=== PATIENT | male | born 1940 | race Caucasian/White ===

== ENCOUNTER → 2016-03-30 | Outpatient (REF) | payer MEDICARE ==
[~2016-03-30] MED LIST: ALBU17IN INH; ALFU10TA2 PO; AMIO20TA PO; ASPI1TAB24 PO; ATOR1TAB21 PO; AUGM875T27 PO; COUM2TAB10 PO; FERR325T3 PO; FOLI1TAB2 PO; LASI20TA PO; MOM30SS PO; PRED20TA PO; SPIR1CAP INH; SYMB80INH INH; TYLE325T5 PO
== END ==
LOC: M SMT 17:32
PROVIDERS: ATTEND Nurse Practitioner Women's Health
DX: N40.0 Benign prostatic hyperplasia without lower urinary tract symptoms (principal)

== ENCOUNTER 2016-07-11 18:02 | Inpatient (IN) | payer MEDICARE ==
[~2016-07-11] VITALS: Ht 177.8 cm; Wt 90.3 kg
[2016-07-11] MEDS ORDERED: VANCOMYCIN HCL 1,000 MG, VIAL MATE ADAPTER 1 EACH in D5W 250 ML IV ONE (18:30)
[2016-07-11] MEDS ORDERED: ACETAMINOPHEN 325 MG TAB PO ONE (18:30)
[2016-07-11] MEDS ORDERED: NS 1,000 ML IV ONE (18:30)
[2016-07-11] MEDS ORDERED: CLINDAMYCIN 600 MG in APPROPRIATE DILUENT 1 EA IV ONE (18:30)
[2016-07-11 18:38] LABS: BASO % 0.3 % (0.0-1.0); EOS # 0.1 K/mm3 (0.0-0.50); EOS % 0.7 % (0.0-3.0); LARGE UNSTAINED CELL # 0.1 K/mm3 (0.0-0.4); LARGE UNSTAINED CELL % 0.9 % (0.0-4.0); LYMPH # 0.8 K/mm3 (1.5-4.5); LYMPH % 7.9 % (24.0-44.0); MEAN CORPUSCULAR HEMOGLOBIN 27.2 pg (27.0-33.0); MEAN CORPUSCULAR HGB CONC 30.9 g/dl (32.0-36.5); MEAN CORPUSCULAR VOLUME 88.2 fl (80.0-96.0); MONO # 0.6 K/mm3 (0.0-0.8); MONO % 6.1 % (0.0-5.0); NEUTROPHILS # 7.6 K/mm3 (1.8-7.7); NEUTROPHILS % 84.1 % (36.0-66.0); PLATELET COUNT, AUTOMATED 179 k/mm3 (150-450); RED CELL DISTRIBUTION WIDTH 14.2 % (11.5-14.5)
[2016-07-11 18:43] LABS: INR 1.73
--- NOTE | 2016-07-11 18:50 | REPUSA ---
CT of the head Clinical history: head injury. Protocol: Multiple axial CT images obtained with 5 mm slice thickness were obtained through the head without administration of contrast. Findings: The ventricles and sulci are symmetric but prominent in size bilaterally. There are periven tricular areas of low attenuation throughout the deep white matter. There is no evidence of acute hem orrhage or infarct. There is no midline shift, mass effect, or extra-axial fluid collection. The osse ous structures are unremarkable. The visualized paranasal sinuses and mastoid air cells are clear. Impression: No acute hemorrhage or infarct. Findings are consistent with age-related atrophy and legal instruments examiner palma small vessel ischemic disease.
--- NOTE | 2016-07-11 18:50 | REPUSA ---
CT of the cervical spine Clinical history: Pain. Technique: Multiple axial CT images were obtained through the cervical spine without administration o f contrast. Coronal and sagittal 3-D reconstructed images were also obtained. Comparison: None. Findings: The cervical vertebral bodies are in satisfactory alignment, but there is reversal of curvature of t he cervical spine noted. No fractures or dislocations are demonstrated. The odontoid process is intac t. Intervertebral disc spaces are severely narrowed at C3/C4, C4/C5, and C5/C6 with disc osteophyte c omplexes. Moderate central canal narrowing is seen at each of these levels, measuring 7 mm in AP diam eter at C3/C4 and C4/C5. There is no evidence of facet subluxation. There is severe narrowing of the left neural foramen at C3/C4. There is severe narrowing of the right neural foramen at C4/C5. The cer vical cranial junction is intact. The surrounding soft tissues are within normal limits. Impression: 1. No acute fracture or traumatic injury. Severe spondylosis as described. 2. Severe degenerative disc disease with disc osteophyte complexes at C3/C4, C4/C5, and C5/C6. 3. Moderate central canal narrowing at C3/C4 with severe left neural foraminal narrowing. 4.. Moderate central canal narrowing at C4/C5 with severe right neural foraminal narrowing.
[2016-07-11 19:08] LABS: ALBUMIN 3.6 GM/DL (3.2-5.2); ALKALINE PHOSPHATASE 63 U/L (45-117); ALT/SGPT 21 U/L (12-78); AST/SGOT 28 U/L (15-37); BILIRUBIN,DIRECT 0.2 MG/DL (0.0-0.2); BILIRUBIN,TOTAL 0.6 MG/DL (0.2-1.0); BLOOD UREA NITROGEN 21 MG/DL (7-18); CALCIUM LEVEL 9.2 MG/DL (8.8-10.2); CHLORIDE LEVEL 103 MEQ/L (98-107); CREATININE FOR GFR 1.16 MG/DL (0.70-1.30); GLUCOSE, FASTING 106 MG/DL (83-110); POTASSIUM SERUM 4.2 MEQ/L (3.5-5.1); SODIUM LEVEL 142 MEQ/L (136-145); TOTAL PROTEIN 6.9 GM/DL (6.4-8.2)
--- NOTE | 2016-07-11 20:10 | REPUSA ---
Clinical history: redness. Findings: Real-time ultrasound imaging of the testicles and scrotum was performed. The right testicle measures 5.0 x 1.8 x 2.9 cm. The left testicle measures 4.8 x 2.3 x 3.2 cm. There is a cyst in th e head of the left epididymis measuring 0.3 x 0.2 cm. The testicles demonstrate normal echo texture a nd echogenicity. Normal color Doppler flow and arterial waveforms are seen bilaterally. No fluid kt ections are seen. Impression: Unremarkable ultrasound examination of the testicles.
[2016-07-11 20:24] LABS: ANION GAP 9 MEQ/L (8-16); CARBON DIOXIDE LEVEL 30 MEQ/L (21-32)
[2016-07-11] MEDS ORDERED: IBUPROFEN 600 MG TAB PO ONE (20:30)
[2016-07-11 20:54] LABS: ALBUMIN/GLOBULIN RATIO 1.09 (1.00-1.93)
[2016-07-11] MEDS ORDERED: SYMB16INH INH (21:12)
[2016-07-11] MEDS ORDERED: ASPI81TA13 PO (21:15)
[2016-07-11] MEDS ORDERED: WARF-20 PO (21:15)
[2016-07-11] MEDS ORDERED: LEFL1TAB4 PO (21:21)
[2016-07-11] MEDS ORDERED: OXYB10TA PO (21:21)
[2016-07-11] MEDS ORDERED: WARF-60 PO (21:21)
[2016-07-11] MEDS ORDERED: FERR325T PO (21:21)
[2016-07-11] MEDS ORDERED: SERT-138 PO (21:21)
[2016-07-11] MEDS ORDERED: VITA200015 PO (21:21)
[2016-07-11] MEDS ORDERED: METF500T PO (21:21)
[2016-07-11] MEDS ORDERED: GLUCAGON FOR INJ 1 MG VIAL (J1610) SC PRN (21:30)
[2016-07-11] MEDS ORDERED: DEXTROSE 50% 50 ML SYRINGE IV PRN (21:30)
[2016-07-11] MEDS ORDERED: IPRATROPIUM 0.5MG/ALBUTEROL 2.5MG INH SOL UD 3ML (DUONEB)(J7620) NEB PRN (21:30)
[2016-07-11] MEDS ORDERED: GLUCOSE 4 GM CHEW TABLET PO PRN (21:30)
--- NOTE | 2016-07-11 21:50 | REPUSA ---
CT of the facial bones without contrast Clinical history: left ear cellulitis. Technique: Multiple axial CT images were obtained through the facial bones and paranasal sinuses util izing 3 mm axial slices without administration of contrast. Coronal and sagittal reconstructions were also obtained. Findings: The visualized paranasal sinuses are clear. The osteomeatal complexes are patent bilaterall y. The nasal septum is midline. The visualized mastoid air cells are clear. The osseous structures do not demonstrate any acute abnormalities. The superficial soft tissues in the left auricle are swolle n, with tissue density t the site. Impression: 1.. Focal soft tissue inflammation and increased density in the left auricular region, corresponding with the patient's suspicious cellulitis of the left external ear. 2. No acute osseous abnormality.
[2016-07-11] MEDS: LR 1,000 ML IV SCH (22:44)
[2016-07-11] MEDS: CEFTAROLINE FOSAMIL 600 MG in D5W MINI-BAG PLUS 50 ML IV SCH (22:46)
[2016-07-11] MEDS: SYMBICORT 160/4.5MCG INHALER 6GM INH SCH (22:49)
[2016-07-11] MEDS: WARFARIN SOD 3 MG TAB PO SCH (22:50)
[2016-07-11] MEDS: SERTRALINE 100 MG TAB PO SCH (22:52)
[2016-07-11] MEDS: ATORVASTATIN 20 MG TAB PO SCH (22:52)
[2016-07-11] MEDS: SENOKOT S TAB PO SCH (22:53)
[2016-07-12] VITALS (8 sets, daily range): BP systolic 131–187; BP diastolic 59–88
[2016-07-12] MEDS: HEPARIN SOD (PORCINE) 5000 UNITS/ML VIAL SQ SCH ×3 (01:03→21:02)
[2016-07-12] MEDS: IPRATROPIUM 0.5MG/ALBUTEROL 2.5MG INH SOL UD 3ML (DUONEB)(J7620) NEB SCH ×4 (01:38→20:00)
--- NOTE | 2016-07-12 01:53 | HPE ---
DATE OF ADMISSION: 07/11/2016 PRIMARY CARE PROVIDER: Yaron Riggs. CHIEF COMPLAINT: Fever and altered mental status. HISTORY OF PRESENT ILLNESS: This is a 76-year-old male patient with underlying medical history of chronic obstructive pulmonary disease (COPD), not on oxygen, obstructive sleep apnea on continuous positive airway pressure (CPAP) at home, dyslipidemia, hypertension, coronary arterial disease with coronary artery bypass graft (CABG), BPH. As per family, patient earlier today was noted to be mildly confused, was also febrile, was very weak. Baseline ambulating with a walker with also benign paroxysmal positional vertigo, undergoing physical therapy. The patient earlier today was so weak that he gave out three times and fell on the floor. No loss of consciousness. No head trauma. Family noticed that the patient is confused intermittently about his name and where he is. Baseline is alert and oriented times three. Was found to be febrile, 103. Subsequently, brought to the emergency room. Patient's only complaint was a mild headache. In the emergency room, patient was found to have a fever of 103. Given intravenous (IV) fluids and antibiotics, found to have cellulitis of left ear with swelling. When the fever improved, patient's mental status also improved. Currently, is alert, oriented times three, only minimally confused. Denies any chest pain, pressure or discomfort. Reported mild headache. No vision change, hearing change. No palpitations, abdominal pain, diarrhea, constipation. No purulent drainage. Patient does have history of a left-sided ear infection in the past with periauricular cellulitis. Last time was 10 months ago. ALLERGIES: No known drug allergies. PAST MEDICAL HISTORY: 1. COPD. 2. Obstructive sleep apnea on CPAP. 3. Hypertension. 4. Dyslipidemia. 5. Coronary arterial disease. 6. Questionable history of diabetes. 7. BPH. PAST SURGICAL HISTORY: 1. Tonsillectomy. 2. Cataract surgery. 3. Cardiac bypass. SOCIAL HISTORY: Remote history of smoking pipe. Quit 2012. Does not drink alcohol. Does not use illicit drugs. FAMILY HISTORY: Positive for coronary arterial disease and myocardial infarction (NM). REVIEW OF SYSTEMS: 10-point review of systems negative except for those mentioned in the history of present illness (HPI). HOME MEDICATIONS: - aspirin 81 mg by mouth daily - atorvastatin 20 mg by mouth every evening - Symbicort 160/4.5 mcg inhalation twice a day - vitamin D 4000 units by mouth daily - ferrous sulfate 325 mg by mouth daily - leflunomide 20 mg by mouth daily - metformin 500 mg by mouth twice a day - oxybutynin 10 mg by mouth daily - sertraline 100 mg every evening - Spiriva inhalation daily - Coumadin 4 mg by mouth Tuesday, Tuesday, Tuesday and 6 mg by mouth Tuesday, Tuesday, , Tuesday PHYSICAL EXAMINATION: VITAL SIGNS: Maximum temperature (T-max) 102.5, current temperature (T-current) 101.5, pulse 72, respirations 20, blood pressure 149/70, pulse oximetry 93% on room air. GENERAL: Patient alert and oriented times three in no acute distress. HEENT: Left periauricular swelling. Tympanic membrane (TM) bilateral ear was filled with wax. No tenderness to tucking of the ears. PULMONARY: Bilaterally clear to auscultation. CARDIAC: Regular rate and rhythm. Normal S1, S2. ABDOMEN: Soft, nontender, nondistended. Positive bowel sounds. EXTREMITIES: No edema bilateral lower extremities. EKGs are pending. LABORATORY: WBC 9, hemoglobin and hematocrit 12.4/40.2, platelets 179. Chemistry: Sodium 142, potassium 4.2, chloride 103, bicarbonate 30, BUN 21, creatinine 1.16. A1c 5.6. Cardiac enzymes negative times one. C-reactive protein 1.53. Total CK 1107. CT of the head no acute pathology. Ultrasound scrotum negative. CT maxillofacial shows focal soft tissue swelling, increased density of the left auricular region, possibly suspicious for cellulitis. ASSESSMENT AND PLAN: This is a 76-year-old male patient with underlying medical history of chronic obstructive pulmonary disease (COPD), obstructive sleep apnea on continuous positive airway pressure (CPAP), hypertension, dyslipidemia, coronary arterial disease, questionable diabetes, BPH, admitted with fevers and cellulitis of the left auricular region and possible otitis externa. 1. Fevers and cellulitis of the periauricular region on the left side and possible otitis externa. This is the second episode. Otolaryngology (ENT), Dr. Alexandro Fuentes has been consulted. Teflaro. Intravenous (IV) fluids for hydration gently overnight. One dose of vancomycin has been given in the emergency room. Continue to monitor. Tylenol as needed. Followup blood cultures. Influenza has been negative. 2. Rhabdomyolysis. Mild, likely secondary to the fall. Patient fell three times today. Physical therapy (PT). IV fluids for gentle hydration. Repeat creatinine phosphokinase (CPK). Telemetry monitoring. 3. Coronary arterial disease. EKG, telemetry. Continue aspirin, statin. Serial cardiac enzymes. 4. History of paroxysmal atrial fibrillation. Patient currently in sinus rhythm. Continue Coumadin. Telemetry monitoring. Patient was previously on amiodarone. Currently not on any rate control medication. Will continue to monitor. 5. COPD. Patient not having any wheeze. Continue nebulizer treatment as needed, Symbicort and Spiriva. 6. BPH. Continue home medication. 7. Hypertension. Monitor blood pressure. Additional blood pressure medication as needed. 8. Encephalopathy. Secondary to fevers and underlying infection. CT scan negative. Continue to monitor. 9. Dyslipidemia. Continue statin. 10. Obstructive sleep apnea. Obstructive sleep apnea (NICKI) protocol. Continue CPAP. 11. Depression. Continue home medication. 12. Questionable history of diabetes. A1c has been negative. Followup fingersticks. Would not give the patient any coverage. 13. Deep venous thrombosis (DVT) prophylaxis. Patient on Coumadin for atrial fibrillation. Followup international normalized ratio (INR). DISPOSITION: Pending ENT consult, clinical improvement, physical therapy.
[2016-07-12] MEDS ORDERED: HumaLOG INSULIN (NovoLOG) PER UNIT SC SCH ×2 (07:30→21:00)
[2016-07-12 08:09] LABS: MEAN CORPUSCULAR HEMOGLOBIN 27.5 pg (27.0-33.0); MEAN CORPUSCULAR HGB CONC 30.6 g/dl (32.0-36.5); MEAN CORPUSCULAR VOLUME 89.9 fl (80.0-96.0); RED CELL DISTRIBUTION WIDTH 14.6 % (11.5-14.5); WHITE BLOOD COUNT 6.6 K/mm3 (4.0-10.0)
[2016-07-12 08:15] LABS: INR 1.57
--- NOTE | 2016-07-12 08:19 | REP ---
Portable chest: Single view. History: Systemic inflammatory response syndrome. Comparison study: March 31, 2015 Findings: The lungs are symmetrically aerated and clear. No infiltrate is seen. EKG monitoring electrodes overlie the chest. Pulmonary vasculature is not increased. Heart is not enlarged. Median sternotomy wires are again seen. Impression: No acute disease. Signed by Rodger Veloz MD 07/12/2016 08:11 A
[2016-07-12] MEDS: SYMBICORT 160/4.5MCG INHALER 6GM INH SCH ×2 (08:42→21:21)
[2016-07-12] MEDS: TIOTROPIUM INHALER/CAPSULE (SPIRIVA) INH SCH (08:42)
[2016-07-12 09:18] LABS: ANION GAP 5 MEQ/L (8-16); BLOOD UREA NITROGEN 19 MG/DL (7-18); CALCIUM LEVEL 8.9 MG/DL (8.8-10.2); CARBON DIOXIDE LEVEL 27 MEQ/L (21-32); CHLORIDE LEVEL 109 MEQ/L (98-107); CREATININE FOR GFR 1.04 MG/DL (0.70-1.30); GLOMERULAR FILTRATION RATE > 60.0 (>42); GLUCOSE, FASTING 127 MG/DL (83-110); POTASSIUM SERUM 3.6 MEQ/L (3.5-5.1); SODIUM LEVEL 141 MEQ/L (136-145)
[2016-07-12] MEDS: LR 1,000 ML IV SCH ×3 (09:27→21:03)
[2016-07-12] MEDS: VITAMIN D 1,000 INTERNATIONAL UNITS TABLET PO SCH (09:28)
[2016-07-12] MEDS: ASPIRIN 81 MG ENTERIC TAB PO SCH (09:28)
[2016-07-12] MEDS: oxyBUTYnin *DITROPAN XL* 5 MG TABCR PO SCH (09:28)
[2016-07-12] MEDS: FERROUS SULFATE 325MG TAB PO SCH (09:28)
[2016-07-12] MEDS: LACTOBACILLUS ACIDOPHILUS CAP (BACID) PO SCH ×3 (09:28→17:41)
[2016-07-12] MEDS: SENOKOT S TAB PO SCH ×2 (09:30→21:03)
[2016-07-12] MEDS: CEFTAROLINE FOSAMIL 600 MG in D5W MINI-BAG PLUS 50 ML IV SCH ×2 (11:10→22:41)
[2016-07-12] MEDS: CIPRODEX OTIC SUSP 7.5ML AS SCH ×2 (11:10→21:02)
[2016-07-12] MEDS: WARFARIN SOD 4 MG TAB PO SCH (17:42)
--- NOTE | 2016-07-12 18:55 | IPNPDOC ---
Date Seen The patient was seen on 07/12/16. Progress Note Hospitalist Progress Note Subjective: Patient states that he is feeling better, and the nursing staff notes that his ear has improved Objective: Physical Exam: Vitals: Vital Sign - Last 24 Hours 07/11/16 07/11/16 07/11/16 07/11/16 19:02 19:32 19:45 20:02 Temp 99.6 Pulse 80 70 72 B/P 149/70 Pulse Ox 93 93 93 07/11/16 07/12/16 07/12/16 07/12/16 20:02 00:00 01:15 04:00 Temp 101.5 100.1 99.6 98.3 Pulse 60 58 Resp 18 18 B/P 131/59 137/63 Pulse Ox 96 95 O2 Delivery Room Air Room Air 07/12/16 07/12/16 07/12/16 07/12/16 08:00 11:45 16:00 17:15 Temp 99.0 98.8 99.2 99.4 Pulse 63 60 64 67 Resp 18 18 18 18 B/P 149/70 135/65 157/71 162/82 Pulse Ox 95 96 95 95 O2 Delivery Room Air Room Air Room Air Room Air General: Awake, alert, no acute distress HEENT: Extraocular movements intact, left ear is unremarkable, right ear is very erythematous and swollen, extending into the surrounding tissue CV: Regular rate and rhythm, no murmurs rubs or gallops Lungs: Clear to auscultation bilaterally Abd: Soft, nontender, nondistended Extremities: No edema of the bilateral lower extremities Neuro: Alert and oriented 3, normal speech Psych: Normal mood and affect Labs and Imaging: Laboratory Tests 07/12/16 07:52 Calcium Level 8.9, Red Blood Count 4.22 L, Mean Corpuscular Volume 89.9, Mean Corpuscular Hemoglobin 27.5, Mean Corpuscular Hemoglobin Concent 30.6 L, Red Cell Distribution Width 14.6 H Assessment and Plan: 76-year-old male with COPD, NICKI on CPAP, hypertension, paroxysmal A. fib, CAD with history of CABG, hyperlipidemia, BPH, who presented with fever and changes in his mental status. He has been found to have sepsis secondary to a cellulitis of his left external ear, which the family reports is the second time this has occurred. He also appears to have some rhabdomyolysis. 1. Sepsis secondary to cellulitis of left external ear: Patient was febrile last night up to 102.5, but his white count is within normal limits. The patient 's mental status has improved and he seems to be at baseline at this point. Continue Teflaro and Ciprodex drops. Dr. Vazquez with ENT has agreed to see the patient in consultation, and we appreciate his input. Continue IV fluids. The patient reports taking leflunomide at home. Is unclear to me why he takes this, but given that it is an immunosuppressant, and he does have a significant infection, we will hold it at this time. Blood cultures are pending 2. COPD: This appears to be at baseline. Continue home Symbicort, Spiriva, and DuoNeb's. 3. NICKI on CPAP: The patient's family is bringing his home CPAP machine. 4. Hypertension: Continue home SERENITY inhibitor. 5. Paroxysmal A. fib: The patient is currently rate controlled. We will continue his home Coumadin and check daily INRs. He does not report taking any rate suppressing medications at home. 6. CAD with history of CABG, hyperlipidemia: Patient currently does not have any chest pain and his EKG is unremarkable, but he does have a mild bump in troponin to 0.14. We'll continue to monitor this. We will continue the patient on his home aspirin and statin. He does not report taking a beta juan antonio at home. 7. BPH: Continue home Ditropan. 8. Rhabdomyolysis: This is most likely secondary to the patient's fall. Family reports that he fell multiple times today. They state that he is frequently unsteady on his feet, and has a walker that he sometimes uses at home. We will continue IV fluids for hydration, as well as check his daily CKs, and get physical therapy involved. DVT prophylaxis: Heparin until INR is therapeutic. Dispo: pending ENT recommendations VS, I&O, 24H, Fishbone Vital Signs/I&O Vital Signs Date Time Temp Pulse Resp B/P Pulse Ox O2 Delivery O2 Flow Rate FiO2 07/12/16 17:15 99.4 67 18 162/82 95 Room Air I&O- Last 24 Hours up to 6 AM 07/12/16 06:00 Intake Total 1000 ml Output Total 300 ml Balance 700 ml Laboratory Data 24H LABS Laboratory Tests 2 07/11/16 18:58: Urine Amorphous Sediment , Urine Appearance CLEAR, Urine Color YELLOW, Urine pH 7.0, Urine Specific Rector 1.019, Urine Protein NEGATIVE, Urine Glucose (UA) NEGATIVE, Urine Ketones NEGATIVE, Urine Urobilinogen 0.2, Urine Bilirubin NEGATIVE, Urine Leukocyte Esterase NEGATIVE, Urine Bacteria (Auto) NEGATIVE, Urine Blood NEGATIVE, Urine Calcium Carbonate Cryst(Auto) , Urine Calcium Oxalate Cryst (Auto) , Urine Calcium Phosphate Norma (Auto) , Urine Cellular Casts , Urine Cystine Crystals , Urine Granular Casts (Auto) , Urine Hyaline Casts (Auto) 0, Urine Leucine Crystals , Urine Mucus (Auto) , Urine Nitrite NEGATIVE, Urine Oval Fat Bodies (Auto) , Urine RBC (Auto) 0, Urine Renal Epithelial Cells , Urine Sperm (Auto) , Urine Squamous Epithelial Cells 0, Urine Transitional Epithelial Cells , Urine Trichomonas (Auto) , Urine Triple Phosphate Cryst (Auto) , Urine Tyrosine Crystals , Urine Uric Acid Crystals ( Auto) , Urine WBC (Auto) 1, Urine Waxy Casts (Auto) , Urine Yeast-Like Cells ( Auto) 07/11/16 23:04: Creatine Kinase MB 5.9H, Creatine Kinase MB Relative Index 0.12, Total Creatine Kinase 4840#H, Troponin I 0.14#H 07/12/16 06:47: Bedside Glucose (Misc Panel) 94 07/12/16 07:52: Creatine Kinase MB 10.0H, Creatine Kinase MB Relative Index 0.15, Total Creatine Kinase 6368H, Troponin I 0.10#, Anion Gap 5L, C-Reactive Protein, Quantitative 5.31H, Blood Urea Nitrogen 19H, Creatinine 1.04, Sodium Level 141, Potassium Level 3.6, Chloride Level 109H, Carbon Dioxide Level 27, Calcium Level 8.9, Glomerular Filtration Rate > 60.0, Magnesium Level 2.0, Prothromb Time International Ratio 1.57, Prothrombin Time 18.9H 07/12/16 11:29: Bedside Glucose (Misc Panel) 131H 07/12/16 12:09: Creatine Kinase MB 8.5H, Creatine Kinase MB Relative Index 0.15, Total Creatine Kinase 5388H, Troponin I 0.07# CBC/BMP Laboratory Tests 07/12/16 07:52 Calcium Level 8.9, Red Blood Count 4.22 L, Mean Corpuscular Volume 89.9, Mean Corpuscular Hemoglobin 27.5, Mean Corpuscular Hemoglobin Concent 30.6 L, Red Cell Distribution Width 14.6 H Microbiology Microbiology 07/11/16 Blood Culture, Received Pending 07/11/16 Blood Culture - Preliminary, Resulted No growth after 24 hours . All specim... 07/11/16 Group A Streptococcus Screen ([facility]BER[facility]) - Final, Complete 07/11/16 Influenza Virus Type A Antigen - Final, Complete 07/11/16 Influenza Virus Type B Antigen - Final, Complete 07/11/16 Urine Culture - Final, Complete ALAN NELSON Jul 12, 2016 18:55
[2016-07-12] MEDS: SERTRALINE 100 MG TAB PO SCH (21:03)
[2016-07-12] MEDS: ATORVASTATIN 20 MG TAB PO SCH (21:03)
[2016-07-13] VITALS (7 sets, daily range): BP systolic 138–210; BP diastolic 64–110
[2016-07-13] MEDS: IPRATROPIUM 0.5MG/ALBUTEROL 2.5MG INH SOL UD 3ML (DUONEB)(J7620) NEB SCH ×4 (02:00→20:00)
--- NOTE | 2016-07-13 04:47 | ECGEPIP ---
Stationary ECG Study [facility] - ED Test Date: 2016-07-11 Pat Name: ALMA CENTENO Department: Room: [place] [address] Gender: M Hand Cooper Helper: ty : 1940 Requested By: Raúl Collins Order Number: [id number] Reading MD: Jacek Redman Measurements Intervals [place] Rate: 81 P: 31 FL: 136 QRS: -49 QRSD: 92 T: 92 QT: 333 QTc: 388 Interpretive Statements SINUS RHYTHM LEFT ATRIAL ENLARGEMENT LEFT AXIS DEVIATION LAFB PRIOR ANTERIOR INFARCT NSTTW ABNORMLAITIES SIMILAR TO 10/24/14 Electronically Signed On 07-13-2016 4:47:32 EDT by Jacek Redman
[2016-07-13 05:44] LABS: MEAN CORPUSCULAR HEMOGLOBIN 28.2 pg (27.0-33.0); MEAN CORPUSCULAR HGB CONC 31.7 g/dl (32.0-36.5); MEAN CORPUSCULAR VOLUME 89.1 fl (80.0-96.0); RED CELL DISTRIBUTION WIDTH 14.4 % (11.5-14.5); WHITE BLOOD COUNT 6.4 K/mm3 (4.0-10.0)
[2016-07-13 05:50] LABS: INR 1.96
[2016-07-13] MEDS: ACETAMINOPHEN TAB 650MG DOSE (2X325MG) PO PRN (05:55)
[2016-07-13] MEDS ORDERED: ENALAPRIL MALEATE 5 MG TAB PO ONE (06:00)
[2016-07-13 06:12] LABS: ANION GAP 5 MEQ/L (8-16); BLOOD UREA NITROGEN 16 MG/DL (7-18); CALCIUM LEVEL 8.5 MG/DL (8.8-10.2); CARBON DIOXIDE LEVEL 28 MEQ/L (21-32); CHLORIDE LEVEL 109 MEQ/L (98-107); CREATININE FOR GFR 0.95 MG/DL (0.70-1.30); GLOMERULAR FILTRATION RATE > 60.0 (>42); GLUCOSE, FASTING 96 MG/DL (83-110); MAGNESIUM LEVEL 1.8 MG/DL (1.8-2.4); POTASSIUM SERUM 3.7 MEQ/L (3.5-5.1); SODIUM LEVEL 142 MEQ/L (136-145)
[2016-07-13] MEDS: TIOTROPIUM INHALER/CAPSULE (SPIRIVA) INH SCH (07:23)
[2016-07-13] MEDS: SYMBICORT 160/4.5MCG INHALER 6GM INH SCH ×2 (07:24→20:59)
[2016-07-13] MEDS: oxyBUTYnin *DITROPAN XL* 5 MG TABCR PO SCH (08:31)
[2016-07-13] MEDS: VITAMIN D 1,000 INTERNATIONAL UNITS TABLET PO SCH (08:31)
[2016-07-13] MEDS: SENOKOT S TAB PO SCH ×2 (08:31→21:09)
[2016-07-13] MEDS: LACTOBACILLUS ACIDOPHILUS CAP (BACID) PO SCH ×3 (08:32→17:18)
[2016-07-13] MEDS: CIPRODEX OTIC SUSP 7.5ML AS SCH ×2 (08:34→21:10)
[2016-07-13] MEDS: FERROUS SULFATE 325MG TAB PO SCH (08:37)
[2016-07-13] MEDS: ASPIRIN 81 MG ENTERIC TAB PO SCH (08:37)
[2016-07-13] MEDS: LR 1,000 ML IV SCH ×2 (09:14→21:10)
--- NOTE | 2016-07-13 09:14 | CR.PDOC ---
[facility] Consultation Consultation CONSULTING DOCTOR: Dr. Voss REASON FOR CONSULT: Preauricular cellulitis HISTORY OF PRESENT ILLNESS: Patient is a 76-year-old male who presented to emergency department on 07/11/16 with inability to stand, confusion, fever of 102.5. In emergency department he was found to have cellulitis of left ear. Patient's mental status improved as his fever was treated. Today he reports that he was having pain in his left ear , below his left ear but that the pain is now much improved. He does mention that he has had a history of left ear infection. He mentions that he has been doing vestibular physical therapy for otoliths. ALLERGIES: No known drug allergies CURRENT MEDICATIONS: Acetaminophen 650 mg by mouth every 4 hours when necessary for pain or fever DuoNeb 3 mL inhalation every 6 hours DuoNeb 3 mL every 2 hours when necessary for shortness breath or wheezing Aspirin 81 mg by mouth daily Lipitor 20 mg by mouth every evening Symbicort 160/4.5 mcg 2 puff twice a day Ceftaroline 600 mg IV every 12 hours Ciprodex 6 drops twice a day left ear D50 25 miles as needed Enalapril 5 mg by mouth daily Ferrous sulfate 325 mg by mouth daily Glucagon 1 mg subcutaneously as needed Glucose 16 g by mouth when necessary Heparin 5000 units subcutaneously every 12 hours Dictated Ringer's at 75 mL/hr Bacid 1 tablet with meals Oxybutynin 10 mg by mouth daily Senokot 1 tablet by mouth twice a day Zoloft 100 mg by mouth every evening Spiriva one inhalation daily Vitamin D 4000 units by mouth daily Warfarin 4 mg every Tuesday, Tuesday, Tuesday Warfarin 6 mg every Tuesday, Tuesday, , Tuesday PAST MEDICAL HISTORY: COPD, obstructive sleep apnea on CPAP, hypertension, dyslipidemia, coronary artery disease, questionable history of diabetes, BPH PAST SURGICAL HISTORY: Tonsillectomy in approximately 1950 Cataract surgery 5 years ago Cardiac bypass SOCIAL HISTORY: Patient has a history of smoking. He smoked for approximately 50 years, quit in July 2012 REVIEW OF SYSTEMS: HEENT: Head: Positive for headaches on presentation to emergency department. Currently denies any headaches, dizziness, lightheadedness. Eyes: denies blurry vision, double vision. Ears: Positive for recent left ear pain. He denies any right ear pain, denies tinnitus or hearing loss in either ear. Nose: denies sinus pain, pressure, rhinorrhea, postnasal drip. Throat: denies sore throat, cough, difficulty swallowing Cardiovascular: denies chest discomfort/pain, palpitations Respiratory: denies shortness of breath, difficulty breathing Integumentary: Positive for recent erythema about the left ear PHYSICAL EXAMINATION: Vitals: Temperature 99.1, MAXIMUM TEMPERATURE 100.1 (last dose of Tylenol given at 05:55), pulse 59, respiratory rate 20, blood pressure 164/76, pulse ox 97% on room air General: Patient seated comfortably, alert and oriented, verbal and able to answer questions appropriately. Patient does not appear to be in any acute distress HEENT: Head: normocephalic, atraumatic. Eyes: pupils equally reactive to light , conjunctiva are pink, sclera are nonicteric. Ears: Right ear with moderate amount of cerumen, no erythema about the year canal, tympanic membrane is dawn with light reflex present. Left ear with mild swelling about the external ear, unable to appreciate any erythema, ear canal non-erythematous, impacted cerumen , unable to assess tympanic membrane. Throat: buccal mucosa is pink and moist with no lesions in the oropharynx Respiratory: Patient breathing comfortably on room air, does not appear to be in any respiratory distress Integumentary: skin free from rashes, lesions, abrasions LABORATORY DATA: CBC: White blood cells 6.4, hemoglobin and hematocrit 11.0/34.6, platelets 142 Chemistry: Sodium 142, potassium 3.7, chloride 109, Carbon dioxide 28, BUN 16, creatinine 0.95, glucose 96, calcium 8.5, magnesium 1.8 Total creatinine kinase 4235 C-reactive protein 5.5 INR 1.96 MICROBOIOLOGY: Blood cultures 2 no growth after 24 hours Group a strep culture: Negative RADIOLOGY: Head CT: No acute hemorrhage or infarct. Findings consistent with age-related atrophy and chronic small vessel ischemic Aziz Cervical spine CT: No acute fracture or traumatic injury. Severe degenerative disc disease with disc osteophyte complexes at C3/C4, C4/C5, and C5/C6. Moderate central canal narrowing at C3/C4 with severe left neural foraminal narrowing. Moderate central canal narrowing at C4/C5 with severe right neural foraminal narrowing. Maxillofacial CT: Focal soft tissue inflammation and increased density in the left auricular region, corresponding with patient suspicious cellulitis of the left external ear. No acute osseous abnormality ASSESSMENT: Patient is a 76-year-old male admitted with fevers, confusion, left preauricular cellulitis. PLAN: #1: Left preauricular cellulitis: Patient has responded well to IV Ceftaroline, Ciprodex eardrops. Patient will continue on IV antibiotics while hospitalized, can be transitioned to oral antibiotics prior to discharge. Will continue on Ciprodex eardrops. My preceptor for this patient encounter was physically present in the building during the encounter and was fully available. As needed, all aspects of the patient interview, examination, medical decision making process, and medical care plan development were reviewed and approved by the preceptor. Preceptor is aware and concurs with the plan as stated in the body of this note and will attest to such by his/her cosignature. Allergies Coded Allergies: No Known Drug Allergy (Verified Allergy, Unknown, 10/24/14) Home Medications Scheduled Aspirin (Aspirin EC) 81 Mg Tab 81 MG PO DAILY (Reported) Atorvastatin Calcium (Atorvastatin Calcium) 20 Mg Tab 20 MG PO QPM (Reported) Budesonide/Formoterol (Symbicort 160-4.5 Mcg/Act) 60 Puff/Inhaler Aers 2 PUFF INH BID (Reported) Cholecalciferol (Vitamin D) 2,000 Unit Tab 4,000 UNIT PO DAILY (Reported) Ferrous Sulfate (Ferrous Sulfate) 325 Mg Tab 325 MG PO DAILY (Reported) Leflunomide (Leflunomide) 20 Mg Tab 20 MG PO DAILY (Reported) Metformin Hydrochloride (Metformin HCl) 500 Mg Tab 500 MG PO BID (Reported) Oxybutynin Chloride (Oxybutynin Chloride ER) 10 Mg Tab 10 MG PO DAILY (Reported ) Sertraline HCl (Sertraline HCl) 100 Mg Tab 100 MG PO QPM (Reported) Tiotropium [place] Monohydrate (Spiriva Handihaler) 18 Mcg Cap 1 PUFF INH DAILY (Reported) Warfarin Sod (Warfarin Sodium) 4 Mg Tab 4 MG PO ASDIRECTED (Reported) 3xW: MON, WED, FRI QPM Warfarin Sod (Warfarin Sodium) 6 Mg Tab 6 MG PO ASDIRECTED (Reported) 4xW: SUN, TUES, THURS, SAT QPM MARY VALLADARES DO Jul 13, 2016 09:14
[2016-07-13] MEDS: CEFTAROLINE FOSAMIL 600 MG in D5W MINI-BAG PLUS 50 ML IV SCH ×2 (10:18→23:21)
[2016-07-13] MEDS: HEPARIN SOD (PORCINE) 5000 UNITS/ML VIAL SQ SCH ×2 (10:18→21:10)
[2016-07-13] MEDS: WARFARIN SOD 3 MG TAB PO SCH (17:18)
--- NOTE | 2016-07-13 18:32 | IPNPDOC ---
Date Seen The patient was seen on 07/13/16. Progress Note Hospitalist Progress Note Subjective: Patient states that he is feeling better Objective: Physical Exam: Vitals: Vital Sign - Last 24 Hours 07/12/16 07/12/16 07/13/16 07/13/16 20:00 23:59 00:00 04:00 Temp 100.1 100.0 98.8 Pulse 69 68 67 Resp 20 18 18 B/P 187/88 168/78 171/108 Pulse Ox 96 95 96 O2 Delivery Room Air NIPPV (BIPAP/CPAP) BIPAP/CPAP NIPPV (BIPAP/CPAP) 07/13/16 07/13/16 07/13/16 07/13/16 05:00 05:57 07:30 12:00 Temp 99.1 98.6 Pulse 59 60 Resp 20 20 B/P 210/110 210/110 164/76 152/77 Pulse Ox 97 94 O2 Delivery Room Air Room Air 07/13/16 07/13/16 16:00 16:44 Temp 98.4 Pulse 76 Resp 20 B/P 192/89 158/74 Pulse Ox 95 O2 Delivery Room Air General: Awake, alert, no acute distress HEENT: Extraocular movements intact, left ear is unremarkable, right ear has decreased swelling and erythema CV: Regular rate and rhythm, no murmurs rubs or gallops Lungs: Clear to auscultation bilaterally Abd: Soft, nontender, nondistended Extremities: No edema of the bilateral lower extremities Neuro: Alert and oriented 3, normal speech Psych: Normal mood and affect Labs and Imaging: Laboratory Tests 07/13/16 05:28 Red Blood Count 3.88 L, Mean Corpuscular Volume 89.1, Mean Corpuscular Hemoglobin 28.2, Mean Corpuscular Hemoglobin Concent 31.7 L, Red Cell Distribution Width 14.4 07/13/16 05:29 Calcium Level 8.5 L Assessment and Plan: 76-year-old male with COPD, NICKI on CPAP, hypertension, paroxysmal A. fib, CAD with history of CABG, hyperlipidemia, BPH, who presented with fever and changes in his mental status. He has been found to have cellulitis of his left external ear, which the family reports is the second time this has occurred. He also appears to have some rhabdomyolysis. 1. Cellulitis of left external ear: Patient was afebrile last night and his white count is within normal limits. The patient's mental status has improved and he seems to be at baseline at this point. Continue Teflaro and Ciprodex drops. Dr. Fuentes with ENT has agreed to see the patient in consultation, and we appreciate his input. Continue IV fluids. The patient reports taking leflunomide at home. Is unclear to me why he takes this, but given that it is an immunosuppressant, and he does have a significant infection, we will hold it at this time. Blood cultures are pending 2. COPD: This appears to be at baseline. Continue home Symbicort, Spiriva, and DuoNeb's. 3. NICKI on CPAP: Continue home CPAP machine. 4. Hypertension: No meds reported at home; SERENITY inhibitor has been started here. Will also add norvasc given elevations. 5. Paroxysmal A. fib: The patient is currently rate controlled. We will continue his home Coumadin and check daily INRs. He does not report taking any rate suppressing medications at home. INR is mildly subtherapeutic at 1.96; if not therapeutic tomorrow, will have to give extra dose. 6. CAD with history of CABG, hyperlipidemia: Patient currently does not have any chest pain and his EKG is unremarkable, but he did have a mild bump in troponin to 0.14 which has trended down. We will continue the patient on his home aspirin and statin. He does not report taking a beta juan antonio at home, and HR is in the 60s. 7. BPH: Continue home Ditropan. 8. Rhabdomyolysis: This is most likely secondary to the patient's fall. Family reports that he fell multiple times. They state that he is frequently unsteady on his feet, and has a walker that he sometimes uses at home. We will continue IV fluids for hydration, as well as check his daily CKs, and get physical therapy involved. DVT prophylaxis: Heparin until INR is therapeutic. Dispo: pending ENT recommendations; transfer to floor VS, I&O, 24H, Fishbone Vital Signs/I&O Vital Signs Date Time Temp Pulse Resp B/P Pulse Ox O2 Delivery O2 Flow Rate FiO2 07/13/16 16:44 158/74 07/13/16 16:00 98.4 76 20 95 Room Air I&O- Last 24 Hours up to 6 AM 07/13/16 06:00 Intake Total 2935 ml Output Total 1775 ml Balance 1160 ml Laboratory Data 24H LABS Laboratory Tests 2 07/12/16 20:40: Bedside Glucose (Misc Panel) 154H 07/13/16 05:29: Anion Gap 5L, C-Reactive Protein, Quantitative 5.50H, Blood Urea Nitrogen 16, Creatinine 0.95, Sodium Level 142, Potassium Level 3.7, Chloride Level 109H, Carbon Dioxide Level 28, Calcium Level 8.5L, Glomerular Filtration Rate > 60.0, Magnesium Level 1.8, Prothromb Time International Ratio 1.96, Prothrombin Time 22.4H, Total Creatine Kinase 4235H 07/13/16 11:50: Bedside Glucose (Misc Panel) 109 07/13/16 18:01: Bedside Glucose (Misc Panel) 136H CBC/BMP Laboratory Tests 07/13/16 05:28 Red Blood Count 3.88 L, Mean Corpuscular Volume 89.1, Mean Corpuscular Hemoglobin 28.2, Mean Corpuscular Hemoglobin Concent 31.7 L, Red Cell Distribution Width 14.4 07/13/16 05:29 Calcium Level 8.5 L Microbiology Microbiology 07/11/16 Blood Culture - Preliminary, Resulted No growth after 24 hours . All specim... 07/11/16 Blood Culture - Preliminary, Resulted No growth after 24 hours . All specim... 07/11/16 Group A Streptococcus Screen ([facility]) - Final, Complete 07/11/16 Influenza Virus Type A Antigen - Final, Complete 07/11/16 Influenza Virus Type B Antigen - Final, Complete 07/11/16 Urine Culture - Final, Complete ALAN NELSON Jul 13, 2016 18:32
[2016-07-13] MEDS: amLODIPine 5 MG TAB PO SCH (18:57)
[2016-07-13] MEDS: SERTRALINE 100 MG TAB PO SCH (21:09)
[2016-07-13] MEDS: ATORVASTATIN 20 MG TAB PO SCH (21:09)
[2016-07-14] MEDS: IPRATROPIUM 0.5MG/ALBUTEROL 2.5MG INH SOL UD 3ML (DUONEB)(J7620) NEB SCH ×4 (01:10→18:52)
[2016-07-14 06:00] VITALS: BP 138/74
[2016-07-14 06:57] LABS: MEAN CORPUSCULAR HEMOGLOBIN 28.1 pg (27.0-33.0); MEAN CORPUSCULAR HGB CONC 31.4 g/dl (32.0-36.5); MEAN CORPUSCULAR VOLUME 89.5 fl (80.0-96.0); RED CELL DISTRIBUTION WIDTH 14.6 % (11.5-14.5); WHITE BLOOD COUNT 5.4 K/mm3 (4.0-10.0)
[2016-07-14 07:01] LABS: INR 1.84
[2016-07-14] MEDS: SYMBICORT 160/4.5MCG INHALER 6GM INH SCH ×2 (07:19→21:27)
[2016-07-14] MEDS: TIOTROPIUM INHALER/CAPSULE (SPIRIVA) INH SCH (07:19)
[2016-07-14 07:22] LABS: ANION GAP 3 MEQ/L (8-16); BLOOD UREA NITROGEN 14 MG/DL (7-18); CALCIUM LEVEL 8.7 MG/DL (8.8-10.2); CARBON DIOXIDE LEVEL 30 MEQ/L (21-32); CHLORIDE LEVEL 109 MEQ/L (98-107); CREATININE FOR GFR 0.93 MG/DL (0.70-1.30); GLOMERULAR FILTRATION RATE > 60.0 (>42); GLUCOSE, FASTING 92 MG/DL (83-110); MAGNESIUM LEVEL 1.8 MG/DL (1.8-2.4); POTASSIUM SERUM 3.8 MEQ/L (3.5-5.1); SODIUM LEVEL 142 MEQ/L (136-145)
[2016-07-14] MEDS: ENALAPRIL MALEATE 5 MG TAB PO SCH (09:00)
[2016-07-14] MEDS: SENOKOT S TAB PO SCH ×2 (09:00→20:21)
[2016-07-14] MEDS: amLODIPine 5 MG TAB PO SCH (09:00)
[2016-07-14] MEDS: LACTOBACILLUS ACIDOPHILUS CAP (BACID) PO SCH ×3 (09:00→17:39)
[2016-07-14] MEDS: ASPIRIN 81 MG ENTERIC TAB PO SCH (09:00)
[2016-07-14] MEDS: FERROUS SULFATE 325MG TAB PO SCH (09:00)
[2016-07-14] MEDS: HEPARIN SOD (PORCINE) 5000 UNITS/ML VIAL SQ SCH (09:01)
[2016-07-14] MEDS: VITAMIN D 1,000 INTERNATIONAL UNITS TABLET PO SCH (09:01)
[2016-07-14] MEDS: oxyBUTYnin *DITROPAN XL* 5 MG TABCR PO SCH (09:01)
[2016-07-14] MEDS: CIPRODEX OTIC SUSP 7.5ML AS SCH ×2 (09:02→20:22)
[2016-07-14] MEDS: CEFTAROLINE FOSAMIL 600 MG in D5W MINI-BAG PLUS 50 ML IV SCH ×2 (11:56→23:59)
[2016-07-14] MEDS: LR 1,000 ML IV SCH (11:56)
[2016-07-14 14:00] VITALS: BP 149/75
--- NOTE | 2016-07-14 15:29 | IPNPDOC ---
Date Seen The patient was seen on 07/14/16. Progress Note Hospitalist Progress Note Subjective: Patient states that he is feeling better Objective: Physical Exam: Vitals: Vital Sign - Last 24 Hours 07/13/16 07/13/16 07/13/16 07/13/16 16:00 16:44 18:57 20:10 Temp 98.4 99.2 Pulse 76 76 69 Resp 20 16 B/P 192/89 158/74 158/74 138/64 Pulse Ox 95 93 O2 Delivery Room Air Room Air 07/14/16 07/14/16 07/14/16 06:00 09:00 09:00 Temp 98.9 Pulse 60 80 Resp 16 B/P 138/74 145/84 145/84 Pulse Ox 92 O2 Delivery Room Air General: Awake, alert, no acute distress HEENT: Extraocular movements intact, left ear is unremarkable, right ear has minimal swelling and erythema CV: Regular rate and rhythm, no murmurs rubs or gallops Lungs: Clear to auscultation bilaterally Abd: Soft, nontender, nondistended Extremities: No edema of the bilateral lower extremities Neuro: Alert and oriented 3, normal speech Psych: Normal mood and affect Labs and Imaging: Laboratory Tests 07/14/16 06:31 Calcium Level 8.7 L, Red Blood Count 3.89 L, Mean Corpuscular Volume 89.5, Mean Corpuscular Hemoglobin 28.1, Mean Corpuscular Hemoglobin Concent 31.4 L, Red Cell Distribution Width 14.6 H Assessment and Plan: 76-year-old male with COPD, NICKI on CPAP, hypertension, paroxysmal A. fib, CAD with history of CABG, hyperlipidemia, BPH, who presented with fever and changes in his mental status. He has been found to have cellulitis of his left external ear, which the family reports is the second time this has occurred. He also appears to have some rhabdomyolysis. 1. Cellulitis of left external ear: Patient is afebrile and his white count is within normal limits. The patient's mental status has improved and he seems to be at baseline at this point. Continue Teflaro and Ciprodex drops. Dr. Fuentes with ENT is following, and we appreciate his input. Continue IV fluids. The patient reports taking leflunomide at home. It is unclear to me why he takes this, but given that it is an immunosuppressant, and he does have a significant infection, we will hold it at this time. Initial blood cultures showed GPCs in 1 /2 bottles. I believe this is likely a contaminant, but we will get a repeat blood culture. 2. COPD: This appears to be at baseline. Continue home Symbicort, Spiriva, and DuoNeb's. 3. NICKI on CPAP: Continue home CPAP machine. 4. Hypertension: No meds reported at home; SERENITY inhibitor and norvasc have been started here. BP is improving. 5. Paroxysmal A. fib: The patient is currently rate controlled. We will continue his home Coumadin and check daily INRs. He does not report taking any rate suppressing medications at home. INR is still subtherapeutic so we will give him an extra dose of coumadin tonight. 6. CAD with history of CABG, hyperlipidemia: Patient currently does not have any chest pain and his EKG is unremarkable, but he did have a mild bump in troponin to 0.14 which has trended down. We will continue the patient on his home aspirin and statin. He does not report taking a beta juan antonio at home, and HR is in the 60s. 7. BPH: Continue home Ditropan. 8. Rhabdomyolysis: This is most likely secondary to the patient's fall. Family reports that he fell multiple times. They state that he is frequently unsteady on his feet, and has a walker that he sometimes uses at home. We will continue IV fluids for hydration, as well as check his daily CKs, and get physical therapy involved. CK is trending down but is still >3000. DVT prophylaxis: Heparin until INR is therapeutic. Dispo: pending repeat blood cultures and resolution of rhabdo VS, I&O, 24H, Fishbone Vital Signs/I&O Vital Signs Date Time Temp Pulse Resp B/P Pulse Ox O2 Delivery O2 Flow Rate FiO2 07/14/16 09:00 80 145/84 07/14/16 06:00 98.9 16 92 Room Air I&O- Last 24 Hours up to 6 AM 07/14/16 06:00 Intake Total 2780 ml Output Total 600 ml Balance 2180 ml Laboratory Data 24H LABS Laboratory Tests 2 07/13/16 18:01: Bedside Glucose (Misc Panel) 136H 07/13/16 20:26: Bedside Glucose (Misc Panel) 130H 07/14/16 06:31: Anion Gap 3L, C-Reactive Protein, Quantitative 2.41H, Blood Urea Nitrogen 14, Creatinine 0.93, Sodium Level 142, Potassium Level 3.8, Chloride Level 109H, Carbon Dioxide Level 30, Calcium Level 8.7L, Glomerular Filtration Rate > 60.0, Magnesium Level 1.8, Prothromb Time International Ratio 1.84, Prothrombin Time 21.3H, Total Creatine Kinase 3585H 07/14/16 11:47: Bedside Glucose (Misc Panel) 91 CBC/BMP Laboratory Tests 07/14/16 06:31 Calcium Level 8.7 L, Red Blood Count 3.89 L, Mean Corpuscular Volume 89.5, Mean Corpuscular Hemoglobin 28.1, Mean Corpuscular Hemoglobin Concent 31.4 L, Red Cell Distribution Width 14.6 H Microbiology Microbiology 07/14/16 Blood Culture, Received Pending 07/11/16 Blood Culture - Preliminary, Resulted 07/11/16 Blood Culture - Preliminary, Resulted No Growth after 48 hours. All Specime... 07/11/16 Group A Streptococcus Screen ([facility]) - Final, Complete 07/11/16 Influenza Virus Type A Antigen - Final, Complete 07/11/16 Influenza Virus Type B Antigen - Final, Complete 07/11/16 Urine Culture - Final, Complete ALAN NELSON Jul 14, 2016 15:29
[2016-07-14] MEDS ORDERED: WARFARIN SOD 4 MG TAB PO ONE (17:00)
[2016-07-14] MEDS: ACETAMINOPHEN TAB 650MG DOSE (2X325MG) PO PRN (17:38)
[2016-07-14] MEDS: WARFARIN SOD 4 MG TAB PO SCH (17:38)
[2016-07-14] MEDS: ATORVASTATIN 20 MG TAB PO SCH (20:21)
[2016-07-14] MEDS: SERTRALINE 100 MG TAB PO SCH (20:21)
[2016-07-14 22:00] VITALS: BP 166/78
[2016-07-15] MEDS: IPRATROPIUM 0.5MG/ALBUTEROL 2.5MG INH SOL UD 3ML (DUONEB)(J7620) NEB SCH ×3 (00:33→13:30)
[2016-07-15] MEDS: LR 1,000 ML IV SCH (02:45)
[2016-07-15 06:00] VITALS: BP 150/46
[2016-07-15 06:21] LABS: MEAN CORPUSCULAR HEMOGLOBIN 28.5 pg (27.0-33.0); MEAN CORPUSCULAR HGB CONC 31.7 g/dl (32.0-36.5); MEAN CORPUSCULAR VOLUME 89.9 fl (80.0-96.0); RED CELL DISTRIBUTION WIDTH 14.5 % (11.5-14.5); WHITE BLOOD COUNT 5.6 K/mm3 (4.0-10.0)
[2016-07-15 06:31] LABS: INR 1.97
[2016-07-15 06:50] LABS: ANION GAP 6 MEQ/L (8-16); BLOOD UREA NITROGEN 13 MG/DL (7-18); CALCIUM LEVEL 8.2 MG/DL (8.8-10.2); CARBON DIOXIDE LEVEL 27 MEQ/L (21-32); CHLORIDE LEVEL 109 MEQ/L (98-107); CREATININE FOR GFR 1.03 MG/DL (0.70-1.30); GLOMERULAR FILTRATION RATE > 60.0 (>42); GLUCOSE, FASTING 92 MG/DL (83-110); MAGNESIUM LEVEL 1.8 MG/DL (1.8-2.4); SODIUM LEVEL 142 MEQ/L (136-145)
[2016-07-15] MEDS: SYMBICORT 160/4.5MCG INHALER 6GM INH SCH (07:55)
[2016-07-15] MEDS: TIOTROPIUM INHALER/CAPSULE (SPIRIVA) INH SCH (07:55)
[2016-07-15 08:20] VITALS: BP 150/46
[2016-07-15] MEDS: oxyBUTYnin *DITROPAN XL* 5 MG TABCR PO SCH (08:20)
[2016-07-15] MEDS: LACTOBACILLUS ACIDOPHILUS CAP (BACID) PO SCH ×2 (08:20→12:22)
[2016-07-15] MEDS: VITAMIN D 1,000 INTERNATIONAL UNITS TABLET PO SCH (08:20)
[2016-07-15] MEDS: amLODIPine 5 MG TAB PO SCH (08:20)
[2016-07-15] MEDS: ENALAPRIL MALEATE 5 MG TAB PO SCH (08:20)
[2016-07-15] MEDS: SENOKOT S TAB PO SCH (08:21)
[2016-07-15] MEDS: CIPRODEX OTIC SUSP 7.5ML AS SCH (08:21)
[2016-07-15] MEDS: FERROUS SULFATE 325MG TAB PO SCH (08:21)
[2016-07-15] MEDS: ASPIRIN 81 MG ENTERIC TAB PO SCH (08:21)
[2016-07-15] MEDS: HEPARIN SOD (PORCINE) 5000 UNITS/ML VIAL SQ SCH ×2 (10:00)
[2016-07-15] MEDS: CEFTAROLINE FOSAMIL 600 MG in D5W MINI-BAG PLUS 50 ML IV SCH (12:22)
[2016-07-15] MEDS ORDERED: ENAL5TAB PO (13:22)
[2016-07-15] MEDS ORDERED: CIPRODEX AS (13:22)
[2016-07-15] MEDS ORDERED: AMLO5TAB2 PO (13:22)
[2016-07-15] MEDS ORDERED: KEFL500C7 PO (13:22)
[2016-07-15 14:00] VITALS: BP 151/62
--- NOTE | 2016-07-15 14:11 | DS.PDOC ---
Discharge Summary General Date of Admission Jul 11, 2016 at 21:34 Date of Discharge 07/15/2016 Discharge Summary DATE OF ADMISSION: 07/11/2016 DATE OF DISCHARGE: 07/15/2016 PRIMARY CARE PHYSICIAN: Renata Hunter at the [facility] (formerly [facility]) DISCHARGE DIAGNOS(E)S: Periauricular cellulitis Rhabdomyolysis HTN subtherapeutic INR HPI & HOSPITAL COURSE: 76-year-old male with COPD, NICKI on CPAP, hypertension, paroxysmal A. fib, CAD with history of CABG, hyperlipidemia, BPH, who presented with fever and changes in his mental status. He has been found to have cellulitis of his left external ear, which the family reports is the second time this has occurred. He also appears to have some rhabdomyolysis. 1. Cellulitis of left external ear: Patient is afebrile and his white count is within normal limits. The patient's mental status has improved and he seems to be at baseline at this point. He has been on Teflaro and Ciprodex drops, but we will change the Teflaro to keflex at discharge. Dr. Fuentes with ENT is following , and would like to see the patient after discharge. The patient reports taking leflunomide at home. It is unclear to me why he takes this, but given that it is an immunosuppressant, and he does have a significant infection, we held it during his hospital stay. Initial blood cultures showed GPCs in 1/2 bottles but this appears to be a contaminant as his repeat blood cultures were negative at 24H. 2. COPD: This appears to be at baseline. Continue home Symbicort, Spiriva, and DuoNeb's. 3. NICKI on CPAP: Continue home CPAP machine. 4. Hypertension: No meds reported at home; SERENITY inhibitor and norvasc have been started here. BP is improving but will need outpatient follow up. 5. Paroxysmal A. fib: The patient is currently rate controlled. We will continue his home Coumadin and check daily INRs. He does not report taking any rate suppressing medications at home. INR is still subtherapeutic so we gave him an extra dose of coumadin on 07/14. He tells me Dr. Cosme monitors his INR , and he will need to get it rechecked and adjusted on Tuesday. 6. CAD with history of CABG, hyperlipidemia: Patient currently does not have any chest pain and his EKG is unremarkable, but he did have a mild bump in troponin to 0.14 which has trended down. We will continue the patient on his home aspirin and statin. He does not report taking a beta juan antonio at home, and HR is in the 60s. 7. BPH: Continue home Ditropan. 8. Rhabdomyolysis: This is most likely secondary to the patient's fall. Family reports that he fell multiple times just prior to admission when he was so sick. They state that he is frequently unsteady on his feet, and has a walker that he sometimes uses at home. He has been on IVF and his CK has steadily trended down. He has been encouraged to drink plenty of liquids upon discharge PHYSICAL EXAMINATION ON DISCHARGE: VITAL SIGNS: Vital Signs Date Time Temp Pulse Resp B/P Pulse Ox O2 Delivery O2 Flow Rate FiO2 07/15/16 14:00 98.2 71 18 151/62 95 Room Air General: Awake, alert, no acute distress HEENT: Extraocular movements intact, left ear is unremarkable, right ear has minimal swelling and erythema CV: Regular rate and rhythm, no murmurs rubs or gallops Lungs: Clear to auscultation bilaterally Abd: Soft, nontender, nondistended Extremities: No edema of the bilateral lower extremities Neuro: Alert and oriented 3, normal speech Psych: Normal mood and affect DISPOSITION: Home DISCHARGE INSTRUCTIONS: Follow-up with PCP within one week. Follow-up with Dr. Fuentes within 1 week. Follow-up with Dr. Cosme in [place] on Tuesday for INR check. Drink plenty of liquids. If symptoms return, or if you experience worsening of your symptoms, please call your doctor or return to the emergency department. ITEMS THAT NEED OUTPATIENT FOLLOWUP: INR needs to be checked and Coumadin needs to be readjusted. Of note, the patient received an extra dose of Coumadin on 07/14. Patient was seen and examined by me on the day of discharge, and I spent a total time of greater than than 30 minutes on this discharge. Vital Signs/I&Os Vital Signs Date Time Temp Pulse Resp B/P Pulse Ox O2 Delivery O2 Flow Rate FiO2 07/15/16 08:20 51 150/46 07/15/16 06:00 98.2 16 95 Room Air I&O- Last 24 Hours up to 6 AM 07/15/16 06:00 Intake Total 2390 ml Output Total 2450 ml Balance -60 ml Laboratory Data Labs 24H Laboratory Tests 2 07/14/16 16:46: Bedside Glucose (Misc Panel) 109 07/14/16 21:21: Bedside Glucose (Misc Panel) 143H 07/15/16 05:23: Anion Gap 6L, C-Reactive Protein, Quantitative 2.19H, Blood Urea Nitrogen 13, Creatinine 1.03, Sodium Level 142, Potassium Level 4.0, Chloride Level 109H, Carbon Dioxide Level 27, Calcium Level 8.2L, Glomerular Filtration Rate > 60.0, Magnesium Level 1.8, Prothromb Time International Ratio 1.97, Prothrombin Time 22.5H, Total Creatine Kinase 2032H 07/15/16 11:36: Bedside Glucose (Misc Panel) 104 CBC/BMP Laboratory Tests 07/15/16 05:23 Calcium Level 8.2 L, Red Blood Count 3.76 L, Mean Corpuscular Volume 89.9, Mean Corpuscular Hemoglobin 28.5, Mean Corpuscular Hemoglobin Concent 31.7 L, Red Cell Distribution Width 14.5 FSBS Laboratory Tests Test 07/14/16 16:46 07/14/16 21:21 07/15/16 11:36 Range/Units Bedside Glucose (Misc Panel) 109 143 104 83-110 MG/DL Microbiology Microbiology 07/14/16 Blood Culture - Preliminary, Resulted No growth after 24 hours . All specim... 07/11/16 Blood Culture - Preliminary, Resulted 07/11/16 Blood Culture - Preliminary, Resulted No Growth after 72 hours. All specime... 07/11/16 Group A Streptococcus Screen ([facility]) - Final, Complete 07/11/16 Influenza Virus Type A Antigen - Final, Complete 07/11/16 Influenza Virus Type B Antigen - Final, Complete 07/11/16 Urine Culture - Final, Complete Discharge Medications Scheduled Amlodipine Besylate (Amlodipine Besylate) 5 Mg Tab 5 MG PO DAILY Aspirin (Aspirin EC) 81 Mg Tab 81 MG PO DAILY (Reported) Atorvastatin Calcium (Atorvastatin Calcium) 20 Mg Tab 20 MG PO QPM (Reported) Budesonide/Formoterol (Symbicort 160-4.5 Mcg/Act) 60 Puff/Inhaler Aers 2 PUFF INH BID (Reported) Cephalexin Monohydrate (Keflex) 500 Mg Cap 500 MG PO Q12H FOR 10 DAYS Cholecalciferol (Vitamin D) 2,000 Unit Tab 4,000 UNIT PO DAILY (Reported) Ciprofloxacin/Dexamethasone (Ciprodex 0.3-0.1 %) 150 Drop/7.5 Ml Susp 6 DROP BID Enalapril Maleate (Enalapril Maleate) 5 Mg Tab 5 MG PO DAILY Ferrous Sulfate (Ferrous Sulfate) 325 Mg Tab 325 MG PO DAILY (Reported) Leflunomide (Leflunomide) 20 Mg Tab 20 MG PO DAILY (Reported) Metformin Hydrochloride (Metformin HCl) 500 Mg Tab 500 MG PO BID (Reported) Oxybutynin Chloride (Oxybutynin Chloride ER) 10 Mg Tab 10 MG PO DAILY (Reported ) Sertraline HCl (Sertraline HCl) 100 Mg Tab 100 MG PO QPM (Reported) Tiotropium [place]ow Monohydrate (Spiriva Handihaler) 18 Mcg Cap 1 PUFF INH DAILY (Reported) Warfarin Sod (Warfarin Sodium) 4 Mg Tab 4 MG PO ASDIRECTED (Reported) 3xW: MON, WED, FRI QPM Warfarin Sod (Warfarin Sodium) 6 Mg Tab 6 MG PO ASDIRECTED (Reported) 4xW: SUN, TUES, THURS, SAT QPM Allergies Coded Allergies: No Known Drug Allergy (Verified Allergy, Unknown, 10/24/14) ALAN NELSON Jul 15, 2016 14:11
== END 2016-07-15 16:29 | disposition home or self-care (01) | DRG 871 ==
LOC: EDBD 18:02 → M ED 19:27 → M ED INP 21:34 → M PCU 07-12 17:16 → M MSPAV 07-13 20:04
PROVIDERS: ADMIT Hospitalist; ATTEND Hospitalist
DX: A41.9 Sepsis, unspecified organism (principal); G93.40 Encephalopathy, unspecified; M62.82 Rhabdomyolysis; H60.12 Cellulitis of left external ear; J44.9 Chronic obstructive pulmonary disease, unspecified; G47.33 Obstructive sleep apnea (adult) (pediatric); I10 Essential (primary) hypertension; I48.0 Paroxysmal atrial fibrillation; I25.10 Atherosclerotic heart disease of native coronary artery without angina pectoris; N40.0 Benign prostatic hyperplasia without lower urinary tract symptoms; F32.9 Major depressive disorder, single episode, unspecified; R29.6 Repeated falls; E78.5 Hyperlipidemia, unspecified; Z98.61 Coronary angioplasty status; Z79.82 Long term (current) use of aspirin; Z79.899 Other long term (current) drug therapy; Z79.84 Long term (current) use of oral hypoglycemic drugs; Z87.891 Personal history of nicotine dependence; Z99.89 Dependence on other enabling machines and devices; Z82.49 Family history of ischemic heart disease and other diseases of the circulatory system; Z79.01 Long term (current) use of anticoagulants

== ENCOUNTER 2016-09-18 20:52 | Emergency (ER) | payer MEDICARE ==
[~2016-09-18] VITALS: Ht 177.8 cm; Wt 81.8 kg
[~2016-09-18 20:52] MED LIST changes: +AMLO5TAB2 PO; +ASPI-161 PO; -ASPI1TAB24 PO; +ASPI81TA24 PO; -AUGM875T27 PO; +AUGM875T28 PO; +CIPRODEX AS; -COUM2TAB10 PO; +COUM2TAB22 PO; +ENAL5TAB PO; +FERR1TAB8 PO; -FOLI1TAB2 PO; +FOLI1TAB4 PO; +KEFL500C17 PO; +LEFL1TAB4 PO; +METF500T13 PO; +OXYB10TA PO; +SERT-138 PO; +SYMB16INH INH; +VITA200015 PO; +WARF-20 PO; +WARF-60 PO
[2016-09-18] MEDS ORDERED: CEPH250T PO (22:38)
[2016-09-18] MEDS ORDERED: CIPRODEX OTIC SUSP 7.5ML AS ONE (22:38)
[2016-09-18] MEDS ORDERED: CEPHALEXIN 250 MG CAP PO ONE (22:45)
[2016-09-18 22:51] VITALS: BP 125/69
== END 2016-09-18 23:11 | disposition home or self-care (01) ==
LOC: M ED 22:57
DX: L03.211 Cellulitis of face (principal)

== ENCOUNTER → 2016-11-03 | Outpatient (REF) | payer MEDICARE ==
[~2016-11-03] MED LIST changes: +CEPH250T PO
[2016-11-03 14:01] LABS: TOTAL PROTEIN 7.1 GM/DL (6.4-8.2)
[2016-11-03 14:09] LABS: FOLATE > 24.0 NG/ML (>5.4); VITAMIN B12 LEVEL 438 PG/ML (247-911)
[2016-11-04 10:44] LABS: ALBUMIN % 60.5 % (55.8-66.1)
[2016-11-06 08:06] LABS: VITAMIN E LEVEL 8.2 mg/L (5.3-17.5)
== END ==
LOC: M LABNEURO 10:49
PROVIDERS: ATTEND Psychiatry & Neurology Neurology
DX: G58.9 Mononeuropathy, unspecified (principal); Z79.899 Other long term (current) drug therapy

== ENCOUNTER → 2016-11-10 | Outpatient (REF) | payer MEDICARE ==
[2016-11-10 12:46] LABS: BASO # 0.1 K/mm3 (0.0-0.2); EOS # 0.2 K/mm3 (0.0-0.50); EOS % 2.6 % (0.0-3.0); LARGE UNSTAINED CELL # 0.1 K/mm3 (0.0-0.4); LARGE UNSTAINED CELL % 1.7 % (0.0-4.0); LYMPH # 1.5 K/mm3 (1.5-4.5); LYMPH % 18.9 % (24.0-44.0); MEAN CORPUSCULAR HEMOGLOBIN 28.3 pg (27.0-33.0); MEAN CORPUSCULAR HGB CONC 31.5 g/dl (32.0-36.5); MEAN CORPUSCULAR VOLUME 89.9 fl (80.0-96.0); MONO # 0.7 K/mm3 (0.0-0.8); MONO % 9.3 % (0.0-5.0); NEUTROPHILS % 66.5 % (36.0-66.0); PLATELET COUNT, AUTOMATED 235 k/mm3 (150-450); RED CELL DISTRIBUTION WIDTH 14.7 % (11.5-14.5); WHITE BLOOD COUNT 7.5 K/mm3 (4.0-10.0)
[2016-11-10 13:22] LABS: ALBUMIN 3.6 GM/DL (3.2-5.2); ALBUMIN/GLOBULIN RATIO 1.24 (1.00-1.93); ALKALINE PHOSPHATASE 73 U/L (45-117); ALT/SGPT 15 U/L (12-78); ANION GAP 5 MEQ/L (8-16); AST/SGOT 13 U/L (15-37); BILIRUBIN,TOTAL 0.5 MG/DL (0.2-1.0); BLOOD UREA NITROGEN 20 MG/DL (7-18); CALCIUM LEVEL 9.3 MG/DL (8.8-10.2); CARBON DIOXIDE LEVEL 29 MEQ/L (21-32); CHLORIDE LEVEL 107 MEQ/L (98-107); COMPLEMENT C3 134 MG/DL (90-180); COMPLEMENT C4 30.4 MG/DL (10-40); CREATININE FOR GFR 0.97 MG/DL (0.70-1.30); FERRITIN 174 NG/ML (26-388); GLOMERULAR FILTRATION RATE > 60.0 (>42); GLUCOSE, FASTING 87 MG/DL (83-110); IMMUNOGLOBULIN M 48.5 MG/DL (40-230); PERCENT SATURATION 30.9 % (19.7-50.0); SODIUM LEVEL 141 MEQ/L (136-145); TOTAL IRON BINDING CAPACITY 259 UG/DL (250-450); TOTAL PROTEIN 6.5 GM/DL (6.4-8.2)
[2016-11-10 13:29] LABS: ERYTHROCYTE SEDIMENTATION RATE 18 mm/hr (0-20)
[2016-11-10 13:39] LABS: POTASSIUM SERUM 5.3 MEQ/L (3.5-5.1)
[2016-11-13 00:06] LABS: COMPLEMENT TOTAL (CH50) > 65 U/mL (42-60); IgG SERUM (part of Subclasses) 529 mg/dL (700-1600); IgG Subclass 1 418 mg/dL (248-810); IgG Subclass 2 198 mg/dL (130-555); IgG Subclass 3 43 mg/dL (15-102); IgG Subclass 4 7 mg/dL (2-96); Lyme Disease IgG/IgM Antibodie <0.91 ISR (0.00-0.90); Lyme Disease IgM Ab Quantitati <0.80 index (0.00-0.79)
== END ==
LOC: M LABDRAW1 10:28
PROVIDERS: ATTEND Internal Medicine Rheumatology
DX: M35.9 Systemic involvement of connective tissue, unspecified (principal); Z79.899 Other long term (current) drug therapy; N18.3 Chronic kidney disease, stage 3 (moderate); D63.8 Anemia in other chronic diseases classified elsewhere; D80.1 Nonfamilial hypogammaglobulinemia

== ENCOUNTER → 2017-02-08 | Outpatient (CLI) | payer MEDICARE ==
--- NOTE | 2017-02-08 11:03 | REP ---
Clinical: Dyspnea . Comparison: 07/11/2016 . Technique: PA and lateral. Findings: The mediastinum and cardiac silhouette are normal. The lung wiley are clear and without acute consolidation, effusion, or pneumothorax. The skeletal structures are intact and normal. Impression: 1. No acute cardiopulmonary process. Signed by Nahun Ramírez MD 02/08/2017 10:55 A
== END ==
LOC: M SMT 10:16
PROVIDERS: ATTEND Internal Medicine Pulmonary Disease
DX: R06.00 Dyspnea, unspecified (principal)